=== PATIENT | female | born 1995 | race Two or more races ===

== ENCOUNTER 2018-08-18 16:42 | Emergency (ER) | payer OTHER ==
[2018-08-18] MEDS: KETOROLAC TROMETHAMINE 10 MG TAB PO (17:29)
== END 2018-08-18 18:56 | disposition home or self-care (01) ==
LOC: M ED 16:42
DX: S70.01XA Contusion of right hip, initial encounter (principal); V48.0XXA Car driver injured in noncollision transport accident in nontraffic accident, initial encounter; Y92.410 Unspecified street and highway as the place of occurrence of the external cause; W22.10XA Striking against or struck by unspecified automobile airbag, initial encounter; D64.9 Anemia, unspecified; Z79.899 Other long term (current) drug therapy
CPT/HCPCS: 71046